=== PATIENT | male | born 2000 | race Caucasian/White ===

== ENCOUNTER 2019-07-26 02:15 | Emergency (ER) | payer SELFPAY ==
[~2019-07-26] VITALS: Ht 172.7 cm; Wt 68.0 kg
[2019-07-26] MEDS ORDERED: IBUPROFEN 600MG TABLET PO ONE (03:00)
[2019-07-26 03:09] VITALS: BP 134/91
== END 2019-07-26 04:09 | disposition home or self-care (01) ==
LOC: ER 02:15
DX: S01.01XA Laceration without foreign body of scalp, initial encounter (principal); S46.912A Strain of unspecified muscle, fascia and tendon at shoulder and upper arm level, left arm, initial encounter; Y04.0XXA Assault by unarmed brawl or fight, initial encounter; Y93.89 Activity, other specified; Y92.488 Other paved roadways as the place of occurrence of the external cause
CPT/HCPCS: 12011; 73030; 99283